=== PATIENT | female | born 1985 | race Caucasian/White ===

== ENCOUNTER 2017-12-04 05:32 | Emergency (ER) | payer BC ==
[2017-12-04] MEDS: HYDROCODONE/APAP (10/325) TAB PO (06:13)
[2017-12-04] MEDS ORDERED: ONDANSETRON (ODT) 4 MG TAB ODT (07:14)
[2017-12-04] MEDS: ONDANSETRON (ODT) 4 MG TAB ODT (07:35)
[2017-12-04] MEDS: BUPIVACAINE 0.5% 30 ML VIAL INJ (09:30)
[2017-12-04] MEDS: METHYLPREDNISOLONE 40 MG INJ IV (09:30)
== END 2017-12-04 11:21 | disposition home or self-care (01) ==
LOC: FTE 05:32
DX: S83.92XA Sprain of unspecified site of left knee, initial encounter (principal); X58.XXXA Exposure to other specified factors, initial encounter; Y92.9 Unspecified place or not applicable
CPT/HCPCS: 29505; 73550; 73562; 99283-25

== ENCOUNTER 2018-07-09 05:59 | Day surgery (SDC) | payer BC ==
[2018-07-09] MEDS ORDERED: PROPOFOL 20 ML (06:15)
[2018-07-09] MEDS ORDERED: FENTAnyl 50 MCG/ML VIAL (06:15)
[2018-07-09] MEDS ORDERED: NEOSTIGMINE 3 MG/3 ML SYRINGE (06:15)
[2018-07-09] MEDS ORDERED: MIDAZOLAM 1 MG/ML 2 ML INJ (06:15)
[2018-07-09] MEDS ORDERED: GLYCOPYRROLATE 0.4 MG INJ (06:15)
[2018-07-09] MEDS ORDERED: LIDOCAINE 2% (SDV) 5 ML INJ (06:15)
[2018-07-09] MEDS ORDERED: ROCURONIUM 50 MG INJ (06:15)
[2018-07-09] MEDS ORDERED: ONDANSETRON 4 MG INJ (06:16)
[2018-07-09] MEDS ORDERED: DEXAMETHASONE 4 MG/ML 1 ML INJ (06:16)
[2018-07-09] MEDS ORDERED: MIDAZOLAM 1 MG/ML 2 ML INJ IV (06:30)
[2018-07-09] MEDS ORDERED: DIPHENHYDRAMINE 50 MG INJ IV (06:30)
[2018-07-09] MEDS ORDERED: OXYCODONE/ACETAMINOPHEN (5/325) TAB PO (06:30)
[2018-07-09] MEDS ORDERED: MEPERIDINE 25 MG INJ IV (06:30)
[2018-07-09] MEDS ORDERED: EPHEDrine SULFATE 50 MG/5 ML SYG IV (06:30)
[2018-07-09] MEDS ORDERED: morphine (1 MG/ML) 10ML SYRINGE IV ×3 (06:30)
[2018-07-09] MEDS ORDERED: LABETALOL HCL 20MG INJ IV (06:30)
[2018-07-09] MEDS ORDERED: FENTAnyl 50 MCG/ML VIAL IV ×2 (06:30)
[2018-07-09] MEDS ORDERED: hydrALAzine 20 MG INJ IV (06:30)
[2018-07-09] MEDS ORDERED: HYDROmorphONE 1 MG/5 ML IV SYRINGE IV (06:30)
[2018-07-09] MEDS ORDERED: ATROPINE 1 MG/10 ML SYRINGE IV (06:30)
[2018-07-09] MEDS ORDERED: LIDOCAINE 1% (MPF) 30 ML INJ (06:52)
[2018-07-09] MEDS ORDERED: NEOMYC/POLYMYX/BACIT 30 GM OINT (06:53)
[2018-07-09] MEDS ORDERED: morphine SULFATE/PF (10 MG/10 ML) INJ (06:53)
[2018-07-09] MEDS ORDERED: CEFAZOLIN 1 GM INJ (07:00)
[2018-07-09] MEDS ORDERED: morphine 2 MG INJ IV (08:00)
[2018-07-09] MEDS: ROPIVACAINE 0.5 % 30 ML VIAL (08:35)
[2018-07-09] MEDS: HYDROmorphONE 1 MG/5 ML IV SYRINGE IV ×2 (10:21→10:29)
[2018-07-09] MEDS: LACTATED RINGER'S 500 ML IV (10:28)
[2018-07-09] MEDS: ONDANSETRON 4 MG INJ IV (10:46)
[2018-07-09] MEDS: OXYCODONE/ACETAMINOPHEN (5/325) TAB PO (11:32)
== END 2018-07-09 12:35 | disposition home or self-care (01) ==
LOC: SDS 05:59
DX: S83.251A Bucket-handle tear of lateral meniscus, current injury, right knee, initial encounter (principal); M94.261 Chondromalacia, right knee; M25.561 Pain in right knee; X58.XXXA Exposure to other specified factors, initial encounter; Y93.89 Activity, other specified; Y92.89 Other specified places as the place of occurrence of the external cause; Y99.8 Other external cause status
CPT/HCPCS: 29881; 82306

== ENCOUNTER 2018-10-23 10:02 | Emergency (ER) | payer BC ==
[2018-10-23] MEDS: ACETAMINOPHEN 325 MG TAB PO (10:38)
[2018-10-23] MEDS: ASPIRIN 325 MG TAB PO (10:39)
[2018-10-23 10:51] LABS: ADD MAN DIFF? NO
[2018-10-23 10:54] LABS: BASOPHILS % 0.4 % (0.0-2.0); EOSINOPHILS % 0.3 % (0.0-7.0); HEMATOCRIT 42.2 % (37.0-47.0); HEMOGLOBIN 13.8 g/dl (12.0-16.0); LYMPHOCYTES # 2.6 10^3/ul (0.8-2.9); LYMPHOCYTES % 26.7 % (15.0-51.0); MEAN CORPUSCULAR HEMOGLOBIN 28.2 pg (29.0-33.0); MEAN CORPUSCULAR HGB CONC 32.7 g/dl (32.0-37.0); MEAN CORPUSCULAR VOLUME 86.3 fl (82.0-101.0); MONOCYTE # 0.5 10^3/ul (0.3-0.9); MONOCYTES % 5.5 % (0.0-11.0); NEUTROPHIL # 6.6 10^3/ul (1.6-7.5); NEUTROPHILS % 66.8 % (39.0-77.0); PLATELET COUNT 372 10^3/UL (140-415); RED BLOOD COUNT 4.89 10^6/ul (4.20-5.40); RED CELL DISTRIBUTION WIDTH 12.8 % (11.5-14.5)
[2018-10-23 10:54] LABS: WHITE BLOOD COUNT 9.9 10^3/ul (4.8-10.8)
[2018-10-23 11:13] LABS: ALANINE AMINOTRANSFERASE 22 IU/L (13-69); ALBUMIN 4.9 g/dl (3.3-4.9); ALBUMIN/GLOBULIN RATIO 1.63; ALKALINE PHOSPHATASE 65 IU/L (42-121); ANION GAP 14 (5-13); ASPARTATE AMINO TRANSFERASE 18 IU/L (15-46); BILIRUBIN,INDIRECT 0.2 mg/dl (0-1.1); BILIRUBIN,TOTAL 0.2 mg/dl (0.2-1.3); BLOOD UREA NITROGEN 11 mg/dl (7-20); CARBON DIOXIDE 31 mmol/L (21-31); CHLORIDE 97 mmol/L (97-110); CREATININE 0.56 mg/dl (0.44-1.00); Estimated GFR > 60 mL/min (>60); GLUCOSE 91 mg/dl (70-220); LIPASE 75 U/L (23-300); POTASSIUM 4.3 mmol/L (3.5-5.1); SODIUM 142 mmol/L (135-144); TOTAL PROTEIN 7.9 g/dl (6.1-8.1)
[2018-10-23 11:27] LABS: TROPONIN-I < 0.012 ng/ml (0.000-0.120)
== END 2018-10-23 11:48 | disposition home or self-care (01) ==
LOC: FTE 10:02
DX: R07.9 Chest pain, unspecified (principal)
CPT/HCPCS: 36415; 71046; 80053; 81025; 83690; 84484; 85025; 93005; 99285-25